=== PATIENT | female | born 1950 | race Caucasian/White ===

== ENCOUNTER → 2022-03-17 | Outpatient (CLI) | payer BC | LOC: MAMO 03-09 13:00 | DX: Z12.31 Encounter for screening mammogram for malignant neoplasm of breast (principal) | CPT/HCPCS: 77063; 77067 ==

== ENCOUNTER → 2022-03-17 | Outpatient (CLI) | payer BC | LOC: MAMO 09-30 09:30 → EXRD 09-30 09:30 → MAMO 02-01 08:00 → EXRD 02-02 09:30 | DX: M85.88 Other specified disorders of bone density and structure, other site (principal); M85.852 Other specified disorders of bone density and structure, left thigh | CPT/HCPCS: 77080 ==